=== PATIENT | female | born 1990 | race Caucasian/White ===

== ENCOUNTER 2016-07-30 11:49 | Emergency (ER) | payer BC ==
[~2016-07-30] VITALS: Ht 170.2 cm; Wt 84.0 kg
[~2016-07-30 11:49] MED LIST: IRON325 MG PO; PERCOCET 5/325M1 TAB PO; PRENATAL1 TAB PO; PRILOSEC20 MG/CAP PO
[2016-07-30 12:53] LABS: HEMATOCRIT 34.9 % (37.0-47.0); HEMOGLOBIN 12.3 g/dl (12.0-16.0); IMMATURE GRANULOCYTES 0.4 % (0.0-1.0); MEAN CELL VOLUME 81.7 fL CALC (80.0-100.0); MEAN CORPUSCULAR HGB 28.8 pG CALC (26.0-32.0); MEAN CORPUSCULAR HGB CONC 35.2 g/L CALC (32.0-36.0); NEUT# 13.25 thou/uL (2.00-7.15); RED BLOOD COUNT 4.27 mill/uL (4.20-5.60); RED CELL DISTRI WIDTH 11.6 % (11.5-15.5)
[2016-07-30 13:07] LABS: URINE BILIRUBIN - DIPSTICK NEGATIVE (NEGATIVE); URINE BLOOD DIPSTICK TRACE-INTACT (NEGATIVE); URINE COLOR YELLOW; URINE GLUCOSE - DIPSTICK NEGATIVE (NEGATIVE); URINE KETONE 15 mg/dL (NEGATIVE); URINE PROTEIN - DIPSTICK TRACE mg/dL (NEG-TRACE); URINE SPECIFIC GRAVITY 1.025; URINE UROBILINOGEN - DIPSTICK 0.2 E.U./dL (0.2)
[2016-07-30 13:23] LABS: ALKALINE PHOSPHATASE 99 u/l (38-126); AMYLASE 51 u/l (30-110); ANION GAP 14 (6-22 (CALC)); BILIRUBIN, TOTAL 0.5 mg/dL (0.0-1.4); BUN 8 mg/dL (7-17); BUN/CREATININE RATIO 14 (12-20 (CALC)); CALCIUM 9.8 mg/dL (8.4-10.2); CARBON DIOXIDE 23 mmol/l (22-30); CHLORIDE 104 mmol/l (95-108); CREATININE 0.6 mg/dL (0.5-1.0); GFR > 60 ML/MIN (>=60 (CALC)); GFR FOR AFR.AMER. > 60 ML/MIN (>=60 (CALC)); GLUCOSE 106 mg/dL (65-105); LIPASE 47 u/l (23-300); POTASSIUM 4.1 mmol/l (3.5-5.1); SGOT/AST 14 u/l (14-36); SGPT/ALT 35 u/l (9-52); SODIUM 137 mmol/l (137-146); TOTAL PROTEIN 7.2 g/dL (6.3-8.2)
[2016-07-30 13:24] LABS: URINE CLARITY CLOUDY; URINE LEUK ESTERASE SMALL (NEGATIVE); URINE NITRITE - DIPSTICK POSITIVE (Negative)
[2016-07-30 13:25] LABS: URINE BACTERIA MANY hpf; URINE EPITHELIAL CELLS MODERATE EPI/hpf (0-FEW); URINE RBC 0-2 RBC/hpf (0-5)
[2016-07-30] MEDS ORDERED: PRENATAL1 TA1 (13:56)
[2016-07-30] MEDS ORDERED: CEPHALEXIN500 MG PO (15:42)
[2016-07-30 16:00] VITALS: BP 109/57
== END 2016-07-30 16:30 | disposition home or self-care (01) | DRG 781 ==
LOC: ED 11:49
PROVIDERS: Emergency Medicine
DX: O23.91 Unspecified genitourinary tract infection in pregnancy, first trimester (principal); B95.2 Enterococcus as the cause of diseases classified elsewhere; Z3A.12 12 weeks gestation of pregnancy; R30.0 Dysuria

== ENCOUNTER 2017-01-31 00:16 | Inpatient (IN) | payer BC, OTHER ==
[~2017-01-31] VITALS: Ht 170.2 cm; Wt 83.0 kg
[2017-01-31] VITALS (12 sets, daily range): BP systolic 105–134; BP diastolic 40–70
[~2017-01-31 00:16] MED LIST changes: +CEPHALEXIN500 MG PO; +FERR SULFATE325 MG PO; +PRENATAL1 TA1
[2017-01-31 02:48] LABS: URINE BILIRUBIN - DIPSTICK NEGATIVE (NEGATIVE); URINE BLOOD DIPSTICK NEGATIVE (NEGATIVE); URINE CLARITY CLEAR; URINE COLOR YELLOW; URINE GLUCOSE - DIPSTICK NEGATIVE (NEGATIVE); URINE KETONE NEGATIVE (NEGATIVE); URINE LEUK ESTERASE NEGATIVE (NEGATIVE); URINE NITRITE - DIPSTICK NEGATIVE (Negative); URINE PH 6.5 (4.5-8.0); URINE PROTEIN - DIPSTICK NEGATIVE (NEG-TRACE); URINE SPECIFIC GRAVITY 1.015; URINE UROBILINOGEN - DIPSTICK 0.2 E.U./dL (0.2)
[2017-01-31 02:52] LABS: BARBITURATES NEGATIVE (NEGATIVE); COCAINE NEGATIVE (NEGATIVE); METHADONE NEGATIVE (NEGATIVE); OXCYCODONE NEGATIVE (NEGATIVE); TETRAHYDROCANNABIONOL NEGATIVE (NEGATIVE); TRICYLIC ANTIDEPRESSANTS NEGATIVE (NEGATIVE)
[2017-01-31 06:25] LABS: HEMATOCRIT 28.5 % (37.0-47.0); HEMOGLOBIN 9.8 g/dl (12.0-16.0); IMMATURE GRANULOCYTES 0.8 % (0.0-1.0); MEAN CELL VOLUME 87.4 fL CALC (80.0-100.0); MEAN CORPUSCULAR HGB 30.1 pG CALC (26.0-32.0); MEAN CORPUSCULAR HGB CONC 34.4 g/L CALC (32.0-36.0); NEUT# 6.97 thou/uL (2.00-7.15); RED BLOOD COUNT 3.26 mill/uL (4.20-5.60); RED CELL DISTRI WIDTH 13.3 % (11.5-15.5)
[2017-01-31 09:42] LABS: ALBUMIN 3.3 g/dL (3.2-5.0); ALKALINE PHOSPHATASE 173 u/l (38-126); ANION GAP 11 (6-22 (CALC)); BILIRUBIN, TOTAL 0.7 mg/dL (0.0-1.4); BUN 8 mg/dL (7-17); BUN/CREATININE RATIO 14 (12-20 (CALC)); CALCIUM 9.3 mg/dL (8.4-10.2); CARBON DIOXIDE 23 mmol/l (22-30); CHLORIDE 108 mmol/l (95-108); CREATININE 0.6 mg/dL (0.5-1.0); GFR > 60 ML/MIN (>=60 (CALC)); GFR FOR AFR.AMER. > 60 ML/MIN (>=60 (CALC)); GLUCOSE 81 mg/dL (65-105); POTASSIUM 4.1 mmol/l (3.5-5.1); SGOT/AST 15 u/l (14-36); SGPT/ALT 50 u/l (9-52); SODIUM 137 mmol/l (137-146); TOTAL PROTEIN 6.3 g/dL (6.3-8.2)
[2017-02-01] VITALS: BP 119/73
[2017-02-01 04:26] VITALS: BP 98/55
[2017-02-01 05:00] LABS: HEMATOCRIT 26.6 % (37.0-47.0); HEMOGLOBIN 9.4 g/dl (12.0-16.0); IMMATURE GRANULOCYTES 0.7 % (0.0-1.0); MEAN CELL VOLUME 85.5 fL CALC (80.0-100.0); MEAN CORPUSCULAR HGB 30.2 pG CALC (26.0-32.0); MEAN CORPUSCULAR HGB CONC 35.3 g/L CALC (32.0-36.0); NEUT# 15.51 thou/uL (2.00-7.15); RED BLOOD COUNT 3.11 mill/uL (4.20-5.60); RED CELL DISTRI WIDTH 13.2 % (11.5-15.5)
[2017-02-01 07:10] VITALS: BP 104/56
[2017-02-01 16:30] VITALS: BP 111/61
[2017-02-01 21:30] VITALS: BP 116/66
[2017-02-02 06:12] VITALS: BP 119/69
[2017-02-02] MEDS ORDERED: OXYCODONE HCL5 MG PO (09:32)
== END 2017-02-02 14:05 | disposition home or self-care (01) | DRG 766 ==
LOC: OB 00:50 → OB-EVAL 12:00 → OB 02-02 14:05
PROVIDERS: ADMIT Obstetrics & Gynecology; ATTEND Obstetrics & Gynecology
PROC: 10D00Z1 Extraction of Products of Conception, Low, Open Approach (ICD-10-PCS; principal; 2017-01-31)
PROC: 0UB70ZZ Excision of Bilateral Fallopian Tubes, Open Approach (ICD-10-PCS; 2017-01-31)
DX: O36.5930 Maternal care for other known or suspected poor fetal growth, third trimester, not applicable or unspecified (principal); F17.210 Nicotine dependence, cigarettes, uncomplicated; O34.211 Maternal care for low transverse scar from previous cesarean delivery; N85.8 Other specified noninflammatory disorders of uterus; O99.334 Smoking (tobacco) complicating childbirth; Z3A.38 38 weeks gestation of pregnancy; Z37.0 Single live birth
CPT/HCPCS: J2270; J2788

== ENCOUNTER 2018-11-28 12:15 | Emergency (ER) | payer OTHER ==
[~2018-11-28] VITALS: Ht 170.2 cm; Wt 80.0 kg
[~2018-11-28 12:15] MED LIST changes: +OXYCODONE HCL5 MG PO
[2018-11-28] MEDS ORDERED: TRAMADOL HYDROC50 M1 PO (13:40)
[2018-11-28 13:50] VITALS: BP 119/82
== END 2018-11-28 13:50 | disposition home or self-care (01) ==
LOC: ED 12:15
DX: S93.402A Sprain of unspecified ligament of left ankle, initial encounter (principal); S93.602A Unspecified sprain of left foot, initial encounter; F17.210 Nicotine dependence, cigarettes, uncomplicated; W10.9XXA Fall (on) (from) unspecified stairs and steps, initial encounter; W17.2XXA Fall into hole, initial encounter; Y92.009 Unspecified place in unspecified non-institutional (private) residence as the place of occurrence of the external cause

== ENCOUNTER 2021-03-12 07:20 | Emergency (ER) | payer OTHER ==
[~2021-03-12] VITALS: Ht 170.2 cm; Wt 84.6 kg
[~2021-03-12 07:20] MED LIST changes: +TRAMADOL HYDROC50 M1 PO
[2021-03-12] MEDS ORDERED: TRAMADOL HYDROC50 M1 PO (07:46)
[2021-03-12] MEDS ORDERED: AMOX/K CLAV875 M1 PO (07:46)
[2021-03-12] MEDS ORDERED: FLOXIN OTIC0.3 % AS (07:46)
[2021-03-12 08:10] VITALS: BP 132/88
== END 2021-03-12 08:16 | disposition home or self-care (01) ==
LOC: ED 07:20
DX: H60.92 Unspecified otitis externa, left ear (principal); H66.92 Otitis media, unspecified, left ear; F17.200 Nicotine dependence, unspecified, uncomplicated